=== PATIENT | male | born 1955 | race Caucasian/White ===

== ENCOUNTER → 2016-05-29 21:12 | Outpatient (CLI) | payer MEDICARE ==
[2014-05-23 13:05] VITALS: BMI 42.3
[~2016-05-29 21:12] MED LIST: ACTOS15 MG PO; ALTACE2.5 MG PO; ASPIRIN325 MG PO; BUPROBAN150 MG PO; DILAUDID4 MG PO; SYNTHROID75 MCG PO; TORADOL10 MG PO; VIBRAMYCIN 100100 MG PO; XANAX1 MG PO
== END | disposition home or self-care (01) ==
LOC: D.LABREF 21:12
DX: R53.81 Other malaise (principal)

== ENCOUNTER → 2017-10-09 13:35 | Outpatient (CLI) | payer MEDICARE ==
[2014-05-23 13:05] VITALS: BMI 42.3
== END | disposition home or self-care (01) ==
LOC: D.CT 13:35
DX: M54.5 Low back pain (principal)

== ENCOUNTER 2019-03-02 00:28 | Emergency (ER) | payer MEDICARE, BC ==
[~2019-03-02] VITALS: Ht 172.7 cm; Wt 120.5 kg
[2019-03-02 00:33] VITALS: Ht 172.7 cm; Wt 120.5 kg
[2019-03-02] MEDS ORDERED: GLUCOTROL XL 1010 MG PO (00:39)
[2019-03-02] MEDS ORDERED: BAYER CHEWABLE81 MG PO (00:40)
[2019-03-02] MEDS ORDERED: VICTOZA0.6 MG/0.1 SQ (00:41)
[2019-03-02] MEDS ORDERED: TOUJEO SOL300 UNIT/1 SC (00:42)
[2019-03-02] MEDS ORDERED: PERCOCET 10-321 EAC1 PO (00:46)
[2019-03-02 01:19] LABS: BASOPHILS 0.1 % (0-2); EOSINOPHILS 0.1 % (0-7); HEMATOCRIT 46.4 % (42.0-54.0); HEMOGLOBIN 15.9 g/dL (13.5-17.5); IMMATURE GRANULOCYTES 0.8 % (0-5); LYMPHOCYTES 8.4 % (15-50); MCH 29.5 pg (26.0-34.0); MCHC 34.3 g/dL (31.0-37.0); MCV 86.1 fL (80.0-100.0); MEAN PLATELET VOLUME 10.1 fL (7.4-10.4); MONOCYTES 1.5 % (2-11); NEUTROPHILS 89.1 % (40-80); PLATELET COUNT 195 10x3/uL (130-400); RBC 5.39 10x6/uL (4.20-6.10); RDW 12.9 % (11.5-14.5); WBC 10.6 10x3/uL (4.8-10.8)
[2019-03-02 01:35] LABS: ALBUMIN 3.5 g/dL (3.4-5.0); ALKALINE PHOSPHATASE 89 U/L (46-116); ALT (SGPT) 45 U/L (10-68); BILIRUBIN - TOTAL 0.46 mg/dL (0.2-1.3); CALC OSMOLALITY 292 mosm/kg (275-300); CALCIUM 9.3 mg/dL (8.5-10.1); CARBON DIOXIDE 25.2 mmol/L (21.0-32.0); CHLORIDE - SERUM 103 mmol/L (98-107); CREATININE - SERUM 1.2 mg/dL (0.6-1.3); POTASSIUM - SERUM 4.8 mmol/L (3.5-5.1); PROTEIN - SERUM 7.7 g/dL (6.4-8.2); SODIUM 135 mmol/L (136-145); UREA NITROGEN 24 mg/dL (7-18); eGFR NON AFRICAN AMERICAN 64 mL/min (90-120)
[2019-03-02 01:37] LABS: GLUCOSE 443 mg/dL (74-106)
[2019-03-02 01:40] LABS: KETONE - SERUM NEGATIVE (NEGATIVE)
[2019-03-02 01:43] LABS: APPEARANCE CLEAR (CLEAR); COLOR YELLOW (YELLOW)
[2019-03-02 01:44] LABS: BILIRUBIN NEGATIVE (NEGATIVE); GLUCOSE 1000 mg/dL (NEGATIVE); KETONE SMALL mg/dL (NEGATIVE); NITRITE NEGATIVE (NEGATIVE); PROTEIN NEGATIVE (NEGATIVE); UROBILINOGEN NORMAL (NORMAL)
[2019-03-02 02:53] VITALS: BP 108/61
== END 2019-03-02 02:53 | disposition home or self-care (01) ==
LOC: D.ER 00:28
PROVIDERS: Emergency Medicine
DX: E11.65 Type 2 diabetes mellitus with hyperglycemia (principal); E03.9 Hypothyroidism, unspecified; I10 Essential (primary) hypertension; K21.9 Gastro-esophageal reflux disease without esophagitis; F17.210 Nicotine dependence, cigarettes, uncomplicated

== ENCOUNTER 2019-11-07 02:31 | Observation (INO) | payer MEDICARE, BC ==
[~2019-11-07] VITALS: Ht 152.4 cm; Wt 117.9 kg
--- NOTE | ~2019-11-07 | HEMODYNAMI ---
PATIENT:KATELYN EMERSON MEDICAL RECORD: [id number] : 51 LOCATION:[place] [address] ADMISSION DATE: 11/07/19 Generatedon:11/07/201911:42 Patient name: KATELYN EMERSON Patient #: [id number] SSN: [id number] : 1955 Date of study: 11/07/2019 Page: Of Hemodynamic Procedure Report Patient Data Patient Demographics Procedure consent was obtained First Name: KATELYN Gender: Male Last Name: IDANIA : 1955 Patient #: [id number] Age: 64 year(s) Race: Unknown SSN: [id number] Additional ID: [id number] Contact details Address: [address] [place] [address] State: [place] City: [facility] [place] Zip code: [address] Past Medical History Allergies Allergen Reaction Date Comments Reported Other allergy 11/07/2019 CLAVULANIC ACID/AMOXICILLIN FROM AUGMENTIN Admission Admission Data Admission Date: 11/07/2019 Admission Time: 3:03 Arrival Date: 11/07/2019 Arrival Time: 0:00 Admit Source: Other Insurance Payor: Medicare Room #: D.2121 [facility] #: [id number] Height (in.): 62 BSA: 2.14 (m2) Height (cm.): 157.48 BMI: 47.55 (kg/m2) Weight (lbs.): 260 Weight (kg.): 117.93 Lab Results Lab Result Date: 11/07/2019 Lab Result Time: 0:00 Biochemistry Name Units Result Min Max BUN mg/dl 22 --(----)-* 7 18 Creatinine mg/dl 1 --(--*-)-- 0.6 1.3 eGFR ml/min 79.31651 *-(----)-- 90 120 NONAFRICAN CBC Name Units Result Min Max Hemoglobin g/dl 14.8 --(-*--)-- 13.5 17.5 Procedure Procedure Types Cath Procedure Diagnostic Procedure [facility] w/Coronaries Sedation Charges Moderate Sedation up to 30 minutes PCI Procedure Coronary Stent Coronary Stent Initial Hemochron ACT Test Procedure Description Procedure Date Procedure Date: 11/07/2019 Procedure Start Time: 11:20 Procedure End Time: 11:40 Procedure Staff Name Function Edinson Tee MD Performing Physician Sydnee Sim RT Monitor Carol Hoffman RN Nurse Ana Day RT Scrub Didiagnes Vasques RT Scrub Procedure Data Cath Procedure Fluoroscopy Diagnostic fluoroscopy Total fluoroscopy Time: 3.4 time: 3.4 min min Diagnostic fluoroscopy Total fluoroscopy dose: dose: 1008 mGy 1008 mGy Contrast Material Contrast Material Type Amount (ml) Isovue 300 89 Entry Location Entry Primary Successful Side Size Upsize Upsize Entry Closure Succes sful Closure Location (Fr) 1 (Fr) 2 (Fr) Remarks Device Remarks Femoral Right 5 Fr 6 Fr Exoseal artery Short Estimated blood loss: 10 ml Diagnostic catheters Device Type Used For End Catheter Placement MULTIPACK JL 4.0 5Fr Left Coronary catheter Angiography MULTIPACK 3DRC 5Fr Right Coronary catheter Angiography MULTIPACK Pigtail 5 Fr LV Angiography catheter Procedure Complications No complications Procedure Medications Medication Administration Route Dosage 0.9% NaCl I.V. 100 ml/hr Oxygen etCO2 Nasal cannula 2 l/min Lidocaine 2% added to field 20 Heparin Flush Bag added to field 2 bags (1000units/500ml NS) Versed I.V. 2 mg Fentanyl I.V. 50 mcg Fentanyl I.V. 50 mcg Heparin Bolus I.V. 5000 units Integrilin (Bolus I.V. 10.7 ml 2mg/ml) Plavix P.O. 600 mg Hemodynamics Rest BSA: 2.14 (m2) HGB: 14.8 (g/dl) O2 Consumption: Estimated: 241.36 (ml/min) O2 Co nsumption indexed: Estimated:112.79 (ml/min/m) Heart Rate: 60 (bpm) Pressure Samples Time Site Value (mmHg) Purpose Heart Use Rate(bpm) 11:26 LV 141/18,24 Snapshot 64 11:26 AO 115/48(84) Pullback 60 11:26 LV 112/10,25 Pullback 60 Gradients Valve Time Site 1 Site 2 Mean SEP/DFP Peak To Heart Use (mmHg) (sec/min) Peak Rate (mmHg) (bpm) Aortic 11:26 LV AO 0 7 0 60 112/10,25 115/48(84) Calculations Valve P-P Mean Valve Index Valve Source Name Gradient Area Flow (cm2) Aortic 0 0 0 0 Snapshots Pre Cath Intra NCS Post Cath Vital Signs Time Heart Resp SPO2 etCO2 NIBP (mmHg) Rhythm Pain Sedation Rate (ipm) (%) (mmHg) Status Level (bpm) 11:13:54 64 14 98 43 146/64(97) NSR 0 (11) 10(A) , No pain 11:18:14 60 16 97 26.1 123/66(91) NSR 0 (11) 10(A) , No pain 11:22:33 58 12 97 42.6 132/63(88) NSR 0 (11) 10(A) , No pain 11:26:53 60 11 98 44.8 119/67(97) NSR 0 (11) 10(A) , No pain 11:31:09 61 13 97 45.5 136/68(106) NSR 0 (11) 10(A) , No pain 11:35:29 67 14 97 41.1 133/60(99) NSR 0 (11) 10(A) , No pain 11:39:51 68 12 98 38.1 134/62(95) NSR 0 (11) 10(A) , No pain Medications Time Medication Route Dose Verified Delivered Reason Notes Effectiveness by by 11:16:31 0.9% NaCl I.V. 100 Edinson Carol used for ml/hr NayJusto Hoffman procedure MD MANN 11:16:37 Oxygen etCO2 2 Edinson Carol used for Nasal l/min NayJusto Hoffman procedure cannula RN 11:16:42 Lidocaine 2% added 20ml Edinson Neves for local to vial [facility] anesthetic field MD REAVES 11:16:47 Heparin Flush added 2 Edinson Neves [facility] ([facility]/500[facility] field MD REAVES NS) 11:17:35 Versed I.V. 2 mg Edinson Carol for sedation St Justo Hoffman MD, RN 11:17:44 Fentanyl I.V. 50 Edinson Carol for sedation mcg St Justo Hoffman MD, RN 11:22:16 Fentanyl I.V. 50 Edinson Carol for sedation mcg St Jutso Hoffman MD RN 11:28:07 Heparin Bolus I.V. 5000 Edinson Medina for verif ied units St Justo Hoffman anticoagulation with Dr. MD MACKENZIE Raza 11:32:21 Integrilin I.V. 10.7 Edinson Medina for (Bolus 2mg/ml) ml St Justo Hoffman antiplatelet RN therapy 11:32:34 Plavix P.O. 600 Edinson Medina for mg St Justo Hoffman antiplatelet RN therapy Procedure Log Time Note 11:00:56 Carol Hoffman RN sent for patient. Start room use. 11:01:58 Arrival Date: 11/07/2019 12:00:00 AM 11:02:17 Admit Source: Other 11:02:32 Insurance Payor : Medicare 11:02:48 Patient Height : 62 inches 11:02:52 Patient Weight : 260 lbs 11:03:27 Lab Result : eGFR NONAFRICAN 79.07579 ml/min 11:03:27 Lab Result : Hemoglobin 14.8 g/dl 11:03:27 Lab Result : BUN 22 mg/dl 11:03:27 Lab Result : Creatinine 1 mg/dl 11:03:35 Diagnostic Cath Status : Urgent 11:05:50 Procedure Status Urgent Heart Cath (IP). 11:06:02 Time tracking: Call back (After hours or weekends) 11:06:12 Plan of Care:Hemodynamics will remain stable., Cardiac rhythm will remain stable., Comfort level will be maintained., Respiratory function will remain adequate., Patient/ family verbilizes understanding of procedure., Procedure tolerated without complication., Recovers from procedure without complications.. 11:06:32 Patient received from Med II to CCL 1 Alert and oriented. Tansferred to table in Supine position. 11:06:36 Signed procedure consent form obtained from patient. 11:06:38 Warm blankets applied, and sommer hugger turned on for patient comfort. 11:06:39 Correct patient and procedure confirmed by team. 11:06:39 ECG and BP/O2 sat monitors applied to patient. 11:12:42 Vital chart was started 11:12:43 Baseline sample Acquired. 11:12:48 Rhythm: sinus rhythm 11:12:50 Full Disclosure recording started 11:12:50 - 11:13:35 H&P Date Dictated: 11/07/2019 Greater than 30 days; new H&P dictated by physician. Or brief H&P completed., ER History on chart.. 11:13:37 Pre-procedure instructions explained to patient. 11:13:38 Pre-op teaching completed and patient verbalized understanding. 11:13:41 Family in patients room. 11:13:44 Patient NPO since Midnight. 11:14:54 Patient allergic to Other allergyCLAVULANIC ACID/AMOXICILLIN FROM AUGMENTIN 11:14:58 Is the patient allergic to Iodine/contrast media? No. 11:15:01 Was the patient premedicated? Yes 11:15:05 Is patient on blood thinner?No 11:15:09 Patient diabetic? Yes. 11:15:11 ----Pre-sedation anethsthesia assessment.---- 11:15:16 Previous problem with sedation/anesthesia? No ? 11:15:19 Snore? Yes 11:15:23 Sleep apnea? Yes 11:15:26 Opens mouth fully? Yes 11:15:29 Sticks out tongue? Yes 11:15:33 Airway obstruction? No ? 11:15:36 Dentures? No ? 11:15:43 Pre procedure: right dorsailis pedis pulse 1+ Palpable, but thready & weak; easily obliterated 11:15:57 IV patent on arrival in left forearm with 0.9% NaCl at [facility]. 11:16:07 Lab results completed and on chart. 11:16:12 Stress Test: no; N/A ? 11:16:18 Right groin area was prepped with chlora-prep and draped in sterile fashion 11:16:21 Alarms reviewed by R. N. 11:16:22 Sharps counted by scrub and verified by R.N. 11:16:27 Use device set Femoral Dx 11:16:29 ACIST Syringe (82151) opened to sterile field. 11:16:30 Bag Decanter (2002) opened to sterile field. 11:16:30 Medline Cath Pack ([id number]) opened to sterile field. 11:16:31 0.9% NaCl 100 ml/hr I.V. was administered by Carol Hoffman RN; used for procedure; Verbal order read back and verified. 11:16:32 ACIST Hand Control (90409) opened to sterile field. 11:16:33 ACIST Manifold (34241) opened to sterile field. 11:16:33 DIAGNOSTIC Multipack 5Fr catheter set ([id number]) opened to sterile field. 11:16:34 Tegaderm 4 x 4 (1626W) opened to sterile field. 11:16:36 SHEATH 5FR [place] (DTP814) opened to sterile field. 11:16:37 Oxygen 2 l/min etCO2 Nasal cannula was administered by Carol Hoffman RN ; used for procedure; Verbal order read back and verified. 11:16:37 EMERALD Guide Wire (650-499) opened to sterile field. 11:16:42 Lidocaine 2% 20ml vial added to field was administered by Edinson Tee MD; for local anesthetic; Verbal order read back and verified. 11:16:47 Heparin Flush Bag (1000units/500ml NS) 2 bags added to field was administered by Edinson Tee MD; used for procedure; Verbal order read back and verified. 11:16:49 Physician arrived 11:16:50 --------ALL STOP TIME OUT------ 11:16:51 Final Timeout: patient, procedure, and site verified with staff and physician. All members of the team are in agreement. 11:16:53 Right groin site verified by team. 11:16:59 Fire Safety Assessment: A--An alcohol-based skin anteseptic being used preoperatively., C--Open oxygen or nitrous oxide is being used., D--An ESU, laser, or fiber-optic light is being used. 11:17:04 Physical assessment completed. ASA score P 2 - A patient with mild systemic disease as per Edinson Tee MD. 11:17:11 2) 60-89 Mildly reduced kidney function, and other findings (as for stage 1) point to kidney disease. 11:17:20 Maximum allowable contrast dose (3.7 X eGFR X 0.75)219 ml. 11:17:27 Sedation plan: IV Moderate Sedation Medication:Versed, Fentanyl 11:17:35 Versed 2 mg I.V. was administered by Carol Hoffman RN; for sedation; Verbal order read back and verified. 11:17:44 Fentanyl 50 mcg I.V. was administered by Carol Hoffman RN; for sedation ; Verbal order read back and verified. 11:20:38 Procedure started. 11:20:46 Local anesthetic to right femoral artery with Lidocaine 2% by Edinson Kemp MD.INITIAL ACCESS ONLY 11:20:51 Zero performed for pressure channel P1 11::57 Zero performed for pressure channel P1 11:22:16 Fentanyl 50 mcg I.V. was administered by Carol Hoffman RN; for sedation ; Verbal order read back and verified. 11:22:21 A 5 Fr sheath was inserted into the Right Femoral artery 11:22:31 A MULTIPACK JL 4.0 5Fr catheter was advanced over the wire and used for Left Coronary Angiography. 11:23:17 LCA angiography performed. 11:23:22 Injector settings: Ml/sec: 3, Volume: 6, 11:24:09 Catheter removed. 11:24:16 A MULTIPACK 3DRC 5Fr catheter was advanced over the wire and used for Right Coronary Angiography. 11:24:35 RCA angiography performed. 11:25:02 Injector settings: Ml/sec: 3, Volume: 6, 11:25:11 Catheter removed. 11:25:19 A MULTIPACK Pigtail 5 Fr catheter was advanced over the wire and used for LV Angiography. 11:25:26 LV gram done using DICKSON 11::33 Injector settings: Ml/sec: 5, Volume: 15, 11:26:36 EF : 50 % 11:26:48 LV hemodynamics recorded. 11:26:50 Catheter removed. 11:26:51 Proceeding to intervention. 11:26:55 SHEATH 6FR [place] (FGJ069) opened to sterile field. 11:26:56 INFLATOR Merit BasixCompak (FW1424) opened to sterile field. 11:26:57 WHISPER 300cm guide wire ([id number]) opened to sterile field. 11:27:09 Sheath upsized to a 6 Fr Short. 11:27:24 GUIDE 6FR XBLAD 3.5 catheter ([id number]) opened to sterile field. 11:27:33 ACC Pre-intervention SOHEILA Flow is 3. 11:27:50 Pre PCI Site: [place] mLAD has 90% stenosis. 11:27:59 6 Fr XBLAD3.5 guide catheter was inserted over the wire 11:28:07 Heparin Bolus 5000 units I.V. was administered by Carol Hoffman RN; for anticoagulation; verified with Dr. Raza Verbal order read back and verified. 11:28:08 APNOIUC580 wire advanced. 11:32:03 Inflate balloon Inflation number: 1 A EMERGE OTW 2.5 x 15 balloon ([id number]) was prepped and advanced across the Mid LAD , then inflated to 10 CLAUDE for 0:23 (min:sec) . 11:32:21 Integrilin (Bolus 2mg/ml) 10.7 ml I.V. was administered by Carol delgadillo RN; for antiplatelet therapy; Verbal order read back and verified. 11:32:34 Plavix 600 mg P.O. was administered by Carol Hoffman RN; for antiplatelet therapy; Verbal order read back and verified. 11:32:44 Balloon removed over the wire. 11:35:38 Place stent Inflation Number: 2 A JALEN RX 3.0 x 15 stent ([id number]) was prepped and advanced across the Mid LAD . The stent was deployed at 14 CLAUDE for 0:23 (min:sec) . 11:36:07 EXOSEAL 6Fr (EX600) opened to sterile field. 11:36:16 Stent catheter was removed intact over wire. 11:36:17 Wire removed. 11:36:18 Guide catheter removed. 11:36:26 Post PCI Site: [place] mLAD has 0% stenosis. 11:36:30 ACC Post-intervention SOHEILA Flow is 3. 11:37:24 Sheath removed intact; hemostasis achieved with Exoseal to the Right Femoral artery. 11:37:27 Procedure ended.(Physican Out) 11:37:51 Risk of Mortality: 1.3 11:37:56 Risk of blood transfusion: 0.7 11:38:01 Risk of NGOC: 3.8 11:38:15 Fluoroscopy time 03.40 minutes. 11:38:20 Fluoroscopy dose: 1008 mGy 11:38:20 Flurop Dose total: 1008 11:38:28 Dose Area Product 24978 mGy/cm. 11:38:36 Contrast amount:Isovue 300 89ml. 11:38:40 Maximum allowable dose exceeded? No. 11:38:41 Sharps counted by scrub and verified by R.N. 11:38:47 Post-op/insertion site Right Femoral artery dressed using a 4 x 4 and Tegaderm. 11:38:52 Post-procedure physical assessment completed. ASA score P 2 - A patient with mild systemic disease as per Edinson Tee MD. 11:38:55 Post procedure rhythm: unchanged. 11:38:58 Estimated blood loss: 10 ml 11:39:00 Post procedure instruction explained to patient.Patient verbalizes understanding. 11:39:01 Patient needs reinforcement of post procedure teaching. 11:39:29 Procedure type changed to Cath procedure, Diagnostic procedure, LHC, C w/Coronaries, Sedation Charges, Moderate Sedation up to 30 minutes, PCI procedure, Coronary Stent, Coronary Stent Initial, Hemochron ACT Test 11:39:31 Procedure and supply charges have been captured, reviewed, submitted an d are correct. 11:39:53 ACT drawn and resulted at 207 seconds. (normal therapeutic range 180-24 0 seconds). 11:40:00 Procedure Complication : No complications 11:40:04 Vital chart was stopped 11:40:11 [facility] Findings: MVD- PCI performed (see procedure note) 11:40:13 Operative report dictated upon procedure completion. 11:40:14 See physician's report for complete and final results. 11:40:18 Report given to [facility]. 11:40:23 Patient transfered to [facility] with Bed. 11:40:26 Procedure ended. 11:40:26 Full Disclosure recording stopped 11:40:34 ACC-PCI Only Patient was given prescriptions, or instructed by Edinson Tee MD to start/continue the following medications upon discharge: Plavix 11:40:36 End room use (Document Last) Intervention Summary Intervention Notes Time ActionType Lesion and Equipment Used Action# Pressure Duration Attributes 11:32:03 Inflate Mid LAD EMERGE OTW 2.5 1 10 00:23 balloon x 15 balloon ([id number]) 11:35:38 Place stent Mid LAD JALEN RX 3.0 x 2 14 00:23 15 stent ([id number]) Device Usage Item Name Manufacture Quantity Catalog Number Hospital Part Current Minimal Lot# / Charge Number Stock Stock Serial# Code ACIST Syringe Acist 1 45813 442131 074093 847242 20 (17379) Medical Systems Inc Bag Decanter Microtek 1 527857 19603 958813 5 (2001S) Medical Inc. Medline Cath Medline 1 [id number] 678929 52022 681739 5 Pack ([id number]) ACIST Hand Acist 1 13752 874463 883799 651913 5 Control Medical (40571) Systems Inc ACIST Manifold Acist 1 47323 274675 655474 046963 5 (60947) Medical Systems Inc DIAGNOSTIC Cardinal 1 WH8149 250657 34588 789427 30 Multipack 5Fr Health catheter set (ZB6017) Tegaderm 4 x 4 3M 1 1626W 966356 980589 034675 5 (1626W) SHEATH 5FR Terumo 1 MBI060 831328 071629 288177 5 [place] (JEG616) EMERALD Guide Cardinal 1 502-455 874420 954804 695046 5 Wire (502-455) Health MULTIPACK JL Cardinal 1 305324 5 4.0 5Fr Health catheter MULTIPACK 3DRC Cardinal 1 342028 5 5Fr catheter Health MULTIPACK Cardinal 1 038001 5 Pigtail 5 Fr Health catheter SHEATH 6FR Terumo 1 YUK076 909887 193609 371457 40 [place] (AYE724) INFLATOR Merit Merit 1 LW8196 925585 052917 785797 15 [facility] Medical (OC5427) WHISPER 300cm Toribio 1 [id number] 840682 875237 395159 5 guide wire Vascular (1484689QV) GUIDE 6FR Cardinal 1 [id number] 529102 444272 300593 10 XBLAD 3.5 Health catheter (38370777) EMERGE OTW 2.5 [place] 1 [id number] 096794 561050 666541 5 [id number] x 15 balloon Scientific ([id number]) JALEN RX 3.0 x Medtronic 1 [id number] 408979 4587291 162064 5 [id number] 15 stent ([id number]) EXOSEAL 6Fr Cardinal 1 EX600 504146 942930 243134 10 (EX600) Health Signature Audit [place] Stage Time Signature Unsigned Intra-Procedure 11/07/2019 Sydnee 11:41:13 AM Roney RT(R) (CV) Intra-Procedure 11/07/2019 Carol Hoffman 11:41:44 AM RN Intra-Procedure 11/07/2019 Edinson Rm 11:42:22 AM Justo REAVES [facility] [address] [place] [address]
[~2019-11-07 02:31] MED LIST changes: +BAYER CHEWABLE81 MG PO; +GLUCOTROL XL 1010 MG PO; +PERCOCET 10-321 EAC1 PO; +TOUJEO SOL300 UNIT/1 SC; +VICTOZA0.6 MG/0.1 SQ
[2019-11-07 03:05] LABS: BASOPHILS 0.2 % (0-2); EOSINOPHILS 2.1 % (0-7); HEMATOCRIT 45.2 % (42.0-54.0); HEMOGLOBIN 14.8 g/dL (13.5-17.5); IMMATURE GRANULOCYTES 0.3 % (0-5); LYMPHOCYTES 28.1 % (15-50); MCH 28.8 pg (26.0-34.0); MCHC 32.7 g/dL (31.0-37.0); MCV 88.1 fL (80.0-100.0); MEAN PLATELET VOLUME 10.1 fL (7.4-10.4); MONOCYTES 7.9 % (2-11); NEUTROPHILS 61.4 % (40-80); PLATELET COUNT 198 10x3/uL (130-400); RBC 5.13 10x6/uL (4.20-6.10); RDW 13.5 % (11.5-14.5); WBC 8.8 10x3/uL (4.8-10.8)
--- NOTE | 2019-11-07 03:05 | NUR ---
PT STATES THAT PAIN IS RELIEVED WITH 1 NITRO PT C/O BELLE STATES THAT HE HAS CHRONIC MIGRAINES. INFORMED.
[2019-11-07 03:08] LABS: APTT 33.6 SECONDS (22.8-39.4); INR 1.06 (0.85-1.17); PROTIME 13.7 SECONDS (11.6-15.0)
[2019-11-07 03:12] LABS: CALC OSMOLALITY 283 mosm/kg (275-300); CALCIUM 8.6 mg/dL (8.5-10.1); CARBON DIOXIDE 27.2 mmol/L (21.0-32.0); CHLORIDE - SERUM 104 mmol/L (98-107); POTASSIUM - SERUM 4.1 mmol/L (3.5-5.1); SODIUM 137 mmol/L (136-145); UREA NITROGEN 22 mg/dL (7-18); eGFR NON AFRICAN AMERICAN 79 mL/min (90-120)
[2019-11-07 03:13] LABS: GLUCOSE 227 mg/dL (74-106)
[2019-11-07 03:33] LABS: ALBUMIN 3.7 g/dL (3.4-5.0); ALKALINE PHOSPHATASE 90 U/L (30-120); ALT (SGPT) 37 U/L (10-68); BILIRUBIN - TOTAL 0.54 mg/dL (0.2-1.3); PROTEIN - SERUM 7.4 g/dL (6.4-8.2)
[2019-11-07 03:34] LABS: TROPONIN-I 0.267 ng/mL (0.000-0.060)
[2019-11-07 03:45] VITALS: BP 104/73
--- NOTE | 2019-11-07 04:20 | NUR ---
PT C/O CHEST PAIN AGAIN AT THIS TIME. PT REFUSED WANTING TO TAKE NITRO AGAIN DUE TO BELLE. INFORMED. SEE EMAR.
[2019-11-07] MEDS ORDERED: HUMALOG 30100 UNITS/ SC (05:16)
[2019-11-07] MEDS ORDERED: LIPITOR20 MG PO (05:21)
[2019-11-07 05:22] VITALS: BP 112/74
--- NOTE | 2019-11-07 05:22 | NUR ---
PT FROM ER VIA STRETCHER, PT AMBULATED TO BED, NO DISTRESS NOTED, RESP EVEN AND UNLABORED. AT BEDSIDE.
[2019-11-07 05:28] VITALS: Ht 152.4 cm; Wt 117.9 kg
--- NOTE | 2019-11-07 06:16 | NUR ---
SHEET METAL FORMER ASSESSMENT COMPLETED BY RN AND PT IS RESTING IN BED WITH AT BEDSIDE.
[2019-11-07 09:01] VITALS: BP 119/41
[2019-11-07 10:22] LABS: BASOPHILS 0.1 % (0-2); HEMATOCRIT 44.6 % (42.0-54.0); HEMOGLOBIN 14.5 g/dL (13.5-17.5); IMMATURE GRANULOCYTES 0.3 % (0-5); LYMPHOCYTES 31.5 % (15-50); MCH 28.5 pg (26.0-34.0); MCHC 32.5 g/dL (31.0-37.0); MCV 87.6 fL (80.0-100.0); MEAN PLATELET VOLUME 10.2 fL (7.4-10.4); MONOCYTES 8.8 % (2-11); NEUTROPHILS 57.3 % (40-80); PLATELET COUNT 169 10x3/uL (130-400); RBC 5.09 10x6/uL (4.20-6.10); RDW 13.4 % (11.5-14.5)
[2019-11-07 10:38] LABS: ALT (SGPT) 38 U/L (10-68); CALC OSMOLALITY 281 mosm/kg (275-300); CALCIUM 8.1 mg/dL (8.5-10.1); CARBON DIOXIDE 27.5 mmol/L (21.0-32.0); CHLORIDE - SERUM 103 mmol/L (98-107); CHOL - HDL RATIO 3.7 ratio (2.3-4.9); CHOLESTEROL, TOTAL 104 mg/dL (0-200); CREATININE - SERUM 0.9 mg/dL (0.6-1.3); GLUCOSE 206 mg/dL (74-106); HDL CHOLESTEROL 28 mg/dL (32-96); LDL CHOLESTEROL 50 mg/dL (0-100); LDL-HDL RATIO 1.8 ratio (1.5-3.5); POTASSIUM - SERUM 4.1 mmol/L (3.5-5.1); SODIUM 137 mmol/L (136-145); TRIGLYCERIDE 133 mg/dL (30-200); UREA NITROGEN 18 mg/dL (7-18); eGFR NON AFRICAN AMERICAN 90 mL/min (90-120)
--- NOTE | 2019-11-07 11:10 | NUR ---
PRE-OPS GIVEN. TO AVIAN KEEPER BY BED.
[2019-11-07] MEDS ORDERED: PLAVIX75 MG PO (13:30)
--- NOTE | 2019-11-07 15:49 | NUR ---
BED REST UP. GROIN STABLE.
--- NOTE | 2019-11-07 16:09 | NUR ---
IV AND TELEMETRY DCD. DC PLANS GIVEN. UNDERSTANDING VOICED. ESCORTED TO CAR BY W/C.
--- NOTE | 2019-11-08 11:22 | CN ---
PATIENT NAME:KATELYN EMERSON MEDICAL RECORD: [id number] : 51 LOCATION:. D.2121 ADMIT DATE: 11/07/19 ACCOUNT: [id number] CONSULTING PHYSICIAN: KODY LUNSFORD MD REFERRING PHYSICIAN: ROSY ROBERT MD DATE OF CONSULTATION: 11/07/2019 HISTORY OF PRESENT ILLNESS: A 64-year-old gentleman with a history of diabetes mellitus, hypertension, hyperlipidemia been having intermittent chest pain, rapidly progressively symptomatology, was actually scheduled for nuclear stress testing in [place] in the near future. However, had rest symptomology yesterday, sent into Emergency Room, found to have NSTEMI with elevated cardiac enzymes. Additionally EKG changes with no significant ST-T changes inferolaterally. He is being evaluated for NSTEMI. PAST MEDICAL HISTORY: Includes: 1. History of hypertension. 2. Hyperlipidemia. 3. Diabetes mellitus. ALLERGIES: AUGMENTIN. SOCIAL HISTORY: Nonsmoker, nondrinker. Stays active. Easily takes care of all his ADLs. No set exercise program. REVIEW OF SYSTEMS: The patient reports easy bruising but reports no swollen glands. The patient reports no fever, no night sweats, no significant weight gain, no significant weight loss. No significant exercise tolerance. The patient reports no dry eyes, no irritation, no vision change. Patient reports no difficulty hearing and no ear pain. Patient reports no frequent nose bleeds or nose and sinus problems. Patient reports on arm pain on exertion. No shortness of breath while lying down. No history of heart murmur. Patient reports no cough, no wheezing or coughing up blood. Patient reports no abdominal pain, no vomiting. Normal appetite. No diarrhea and not vomiting blood. No nausea and no constipation. Patient reports no incontinence. No difficulty urinating. No hematuria. No increased frequency. Patient reports no muscle aches. No weakness, no arthralgias, no back pain. No swelling of the extremities. Patient reports no abnormal mole, no jaundice, no rashes. Reports no loss of consciousness. No weakness and no numbness. No seizures, dizziness, or headaches. The patient reports no depression, no sleep disturbance, feeling safe in a relationship and no alcohol abuse. Patient reports on fatigue. Reports no runny nose or sinus pressure. No itching, no hives, and no frequent sneezing. MEDICATIONS: Include Altace 2.5 daily, Lipitor 20 daily, Xanax 1 p.o. at bedtime p.r.n., aspirin 81 daily, Dilaudid 4 mg q.6 hours p.r.n., Synthroid 75 mcg daily, Glucotrol 15 daily, Victoza 14 subq daily. PHYSICAL EXAMINATION: GENERAL: Pleasant gentleman in no acute distress, appears stated age. VITAL SIGNS: Blood pressure 112/74, pulse 84 and regular. HEENT: Normocephalic, atraumatic. NECK: No JVD or bruit. HEART: Regular. LUNGS: Good air excursion. CONSULT REPORT [id number] KATELYN EMERSON ABDOMEN: Soft, nontender. EXTREMITIES: Pulses actually well preserved. There is 1+ edema. IMPRESSION: Ybz-VU-jjabktldq myocardial infarction, multiple risk factors. PLAN: For angiography, intervention based on above. TRANSINT:[id number] Voice Confirmation ID: [id number] DOCUMENT ID: [id number] KODY LUNSFORD MD at 1122 CC: [id number] DICTATION DATE: 11/07/19 0858 SILVERWARE WASHER: 11/07/19 0951 DIS IN 11/07/19 [facility] [address] [place] [address]
--- NOTE | 2019-11-08 11:22 | OP ---
PATIENT NAME: KATELYN EMERSON MEDICAL RECORD: [id number] :51 LOCATION:D.M2 D.1 ADMISSION DATE:11/07/19 SURGEON: KODY LUNSFORD MD DATE OF OPERATION: 11/07/2019 PROCEDURE: Left heart catheterization, selective coronary angiography, right femoral artery approach. CATHETERS: A 5-Armenian sheath, 5/4 left and right Nathan, 5/4 pig. The procedure was well tolerated. The patient returned to kelly, sheath removed. We proceeded to do a PTCA stenting to the LAD. FINDINGS: Left ventriculography in 30-degree DICKSON view: Normal wall motion, normal systolic function. CORONARY ANATOMY: LEFT MAIN: Left main is free of disease. LAD: Has a basically subtotaled better than 90% stenosis in its mid portion. I see a culprit artery. CIRCUMFLEX: Medium sized circumflex. There is an OM 2.5-3 vessel and has about 80% long diffuse stenosis. RIGHT CORONARY ARTERY: Large, dominant, free of disease. IMPRESSION: Culprit artery obviously LAD. PLAN: Intervention momentarily, staged intervention of the circ at a later date. DESCRIPTION OF PROCEDURE: A 5-Armenian sheath was exchanged for a 6-Armenian sheath. XB LAD guiding catheter provided good guide catheter support followed by 300 cm Whisper wire was placed across subtotal LAD down to distal portion of this vessel. Pre-deployment balloon was a 2.5 x 15, stent deployed was a 3.0 x 18 drug-eluting stent up to 14 atmospheres for 45 seconds. Final angiography shows excellent resolution of a 90% plus stenosis, no significant residual. SOHEILA flow was 3 throughout the procedure. Heparin and Integrilin were used during the case. Plavix was loaded in the lab. Sheath closed with ExoSeal device. TRANSINT:[id number] Voice Confirmation ID: [id number] DOCUMENT ID: [id number] KODY LUNSFORD MD at 1122 CC: [id number] DICTATION DATE: 11/07/19 1148 TALENT ACQUISITION ADMINISTRATOR: 11/07/19 1741 DIS IN 11/07/19 [facility] [address] [place] [address]
== END 2019-11-07 16:10 | disposition home or self-care (01) ==
LOC: D.ER 02:31 → D.M2 03:03 → OBSVTIME 03:03 → D.M2 16:10
PROVIDERS: Family Medicine; Internal Medicine Interventional Cardiology; ADMIT Family Medicine; ATTEND Family Medicine
DX: I21.4 Non-ST elevation (NSTEMI) myocardial infarction (principal); I10 Essential (primary) hypertension; E11.65 Type 2 diabetes mellitus with hyperglycemia; K21.9 Gastro-esophageal reflux disease without esophagitis; M19.90 Unspecified osteoarthritis, unspecified site; E03.9 Hypothyroidism, unspecified; F41.8 Other specified anxiety disorders; G89.29 Other chronic pain; E78.5 Hyperlipidemia, unspecified
CPT/HCPCS: 93458; C9600

== ENCOUNTER 2019-11-23 11:01 | Outpatient (CLI) | payer MEDICARE, BC ==
[~2019-11-23] VITALS: Ht 172.7 cm; Wt 119.9 kg
--- NOTE | ~2019-11-23 | HEMODYNAMI ---
PATIENT:KATELYN EMERSON MEDICAL RECORD: [id number] : 51 LOCATION:[facility] ADMISSION DATE: 11/23/19 Generatedon:11/23/201913:03 Patient name: KATELYN EMERSON Patient #: [id number] SSN: [id number] : 1955 Date of study: 11/23/2019 Page: Of Hemodynamic Procedure Report Patient Data Patient Demographics Procedure consent was obtained First Name: KATELYN Gender: Male Last Name: IDANIA : 1955 Patient #: [id number] Age: 64 year(s) Race: SSN: [id number] Additional ID: [id number] Contact details Address: [address] [place] [address] State: [place] City: [facility] Zip code: [address] Past Medical History Allergies Allergen Reaction Date Comments Reported Other allergy 11/07/2019 CLAVULANIC ACID/AMOXICILLIN FROM AUGMENTIN Other allergy 11/23/2019 clavulanic acid, amoxicyllin Admission Admission Data Admission Date: 11/23/2019 Admission Time: 11:01 Arrival Date: 11/23/2019 Arrival Time: 12:00 Admit Source: Other Insurance Payor: Medicare [facility] #: [id number] Lab Results Lab Result Date: 11/23/2019 Lab Result Time: 0:00 Biochemistry Name Units Result Min Max BUN mg/dl 22 --(----)-* 7 18 Creatinine mg/dl 0.9 --(-*--)-- 0.6 1.3 eGFR ml/min 90 --(*---)-- 90 120 NONAFRICAN CBC Name Units Result Min Max Hematocrit % 45.2 --(-*--)-- 42 54 Hemoglobin g/dl 14.6 --(-*--)-- 13.5 17.5 Procedure Procedure Types Cath Procedure Diagnostic Procedure PCI Procedure Coronary Stent Coronary Stent Initial Procedure Description Procedure Date Procedure Date: 11/23/2019 Procedure Start Time: 12:48 Procedure End Time: 13:01 Procedure Staff Name Function Edinson Tee MD Performing Physician Kim Alvarez RT Monitor Jessica Chen RT Scrub Emeterio Sow RN Nurse Procedure Data Cath Procedure Fluoroscopy Diagnostic fluoroscopy Total fluoroscopy Time: 2 time: 2 min min Diagnostic fluoroscopy Total fluoroscopy dose: 550 dose: 550 mGy mGy Contrast Material Contrast Material Type Amount (ml) Isovue 370 50 Entry Location Entry Primary Successful Side Size Upsize Upsize Entry Closure Succes sful Closure Location (Fr) 1 (Fr) 2 (Fr) Remarks Device Remarks Femoral Right 6 Fr Exoseal artery Short Estimated blood loss: 10 ml Procedure Complications No complications Procedure Medications Medication Administration Route Dosage Oxygen etCO2 Nasal cannula 2 l/min Lidocaine 2% added to field 20 Heparin Flush Bag added to field 2 bags (1000units/500ml NS) 0.9% NaCl I.V. 100 ml/hr Versed I.V. 2 mg Fentanyl I.V. 50 mcg Heparin Bolus I.V. 5000 units Versed I.V. 1 mg Fentanyl I.V. 50 mcg Versed I.V. 1 mg Hemodynamics Rest HGB: 14.6 (g/dl) Heart Rate: 57 (bpm) Snapshots Pre Cath Intra NCS Post Cath Vital Signs Time Heart Resp SPO2 etCO2 NIBP (mmHg) Rhythm Pain Sedation Rate (ipm) (%) (mmHg) Status Level (bpm) 12:41:24 55 20 95 39 133/61(110) NSR 0 (11) 10(A) , No pain 12:45:58 55 19 94 35.2 139/64(88) NSR 0 (11) 10(A) , No pain 12:50:33 58 15 95 35.3 123/63(93) NSR 0 (11) 9(A) , No pain 12:55:05 59 12 96 21.7 140/63(117) NSR 0 (11) 9(A) , No pain 12:59:48 56 12 96 44.2 135/57(103) NSR 0 (11) 10(A) , No pain Medications Time Medication Route Dose Verified Delivered Reason Notes E ffectiveness by by 12:39:56 Oxygen etCO2 2 Edinson Storm used for Nasal l/min St Justo Sow hose builder cannula 12:40:03 Lidocaine 2% added 20ml Edinson Neves for local to vial [facility] anesthetic field MD REAVES 12:40:08 Heparin Flush added 2 Edinson Neves used for Bag to bags [facility] procedure (1000units/500ml field MD REAVES NS) 12:40:18 0.9% NaCl I.V. 100 Edinson Storm Per ml/hr Isatu Magi MANN physician 12:49:40 Versed I.V. 2 mg Edinson Fungie for [place] Magi MANN sedation 12:49:46 Fentanyl I.V. 50 Edinson Buffie for [facility] Magi MANN sedation 12:52:29 Heparin Bolus I.V. 5000 Edinson Neves for local verified units [facility] anesthetic with dr MD MD sanchez 12:52:33 Versed I.V. 1 mg Edinson Salazarory for [facility] sedation MD REAVES 12:52:37 Fentanyl I.V. 50 Edinson Salazarory for [facility] sedation MD REAVES 12:56:17 Versed I.V. 1 mg Edinson Salazarory for [facility] sedation MD REAVES Procedure Log Time Note 11:54:09 Diagnostic Cath Status : Elective 11:55:14 Informed consent obtained and on chart 11:55:27 Arrival Date: 11/23/2019 12:00:00 PM 11:55:54 Admit Source: Other 11:55:57 Insurance Payor : Medicare 11:56:55 Procedure Status Elective Heart Cath (OP). 11:57:20 Time tracking: Regular hours (M-F 7:00 - 5:00) 11:57:25 Plan of Care:Hemodynamics will remain stable., Cardiac rhythm will remain stable., Comfort level will be maintained., Respiratory function will remain adequate., Patient/ family verbilizes understanding of procedure., Procedure tolerated without complication., Recovers from procedure without complications.. 12:00:19 Jessica Chen RT(R) sent for patient. Start room use. 12:39:19 Warm blankets applied, and sommer hugger turned on for patient comfort. 12:39:26 Correct patient and procedure confirmed by team. 12:39:32 ECG and BP/O2 sat monitors applied to patient. 12:39:43 Vital chart was started 12:39:56 Oxygen 2 l/min etCO2 Nasal cannula was administered by Buffie Sow RN; used for procedure; Verbal order read back and verified. 12:39:58 Patient received from Pre/Post Procedure Room to CCL 1 Alert and oriented. Tansferred to table in Supine position. 12:40:03 Lidocaine 2% 20ml vial added to field was administered by Edinson Tee MD; for local anesthetic; Verbal order read back and verified. 12:40:08 Heparin Flush Bag (1000units/500ml NS) 2 bags added to field was administered by Edinson Tee MD; used for procedure; Verbal order read back and verified. 12:40:18 0.9% NaCl 100 ml/hr I.V. was administered by Emeterio Sow RN; Per physician; Verbal order read back and verified. 12:43:18 Pre-procedure instructions explained to patient. 12:43:18 Pre-op teaching completed and patient verbalized understanding. 12:43:20 Family in waiting room. 12:43:22 Patient NPO since Midnight. 12:43:24 Is the patient allergic to Iodine/contrast media? No. 12:43:25 Was the patient premedicated? No 12:43:27 Is patient on blood thinner?Yes 12:43:29 ACC The patient was administered the following blood thiners within the last 24 hours: ACCPlavix 12:43:31 Patient diabetic? Yes. 12:43:32 If diabetic: On Metformin? No 12:43:34 - 12:43:34 ----Pre-sedation anethsthesia assessment.---- 12:43:37 Previous problem with sedation/anesthesia? No ? 12:43:38 Snore? Yes 12:43:40 Sleep apnea? Unknown 12:43:42 Deviated septum? No 12:43:43 Opens mouth fully? Yes 12:43:44 Sticks out tongue? Yes 12:43:48 Airway obstruction? No ? 12:43:50 Dentures? No ? 12:44:39 Baseline sample Acquired. 12:44:40 Full Disclosure recording started 12:44:45 H&P Date Dictated: 11/23/2019 New H&P dictated by physician.. 12:45:38 Patient allergic to Other allergyclavulanic acid, amoxicyllin 12:45:46 Baseline sample Acquired. 12:45:52 Rhythm: sinus bradycardia 12:46:00 Pre procedure: right dorsailis pedis pulse 1+ Palpable, but thready & weak; easily obliterated 12:46:03 Patient pain scale 0/10 ?. 12:46:19 IV patent on arrival in right antecubital with 0.9% NaCl at [facility]. 12:47:16 Lab Result : BUN 22 mg/dl 12:47:16 Lab Result : Creatinine 0.9 mg/dl 12:47:16 Lab Result : eGFR NONAFRICAN 90 ml/min 12:47:16 Lab Result : Hemoglobin 14.6 g/dl 12:47:16 Lab Result : Hematocrit 45.2 % 12:47:22 Lab results completed and on chart. 12:47:25 Stress Test: no; N/A ? 12:47:26 Alarms reviewed by R. N. 12:47:27 Sharps counted by scrub and verified by R.N. 12:47:31 Right groin area was prepped with chlora-prep and draped in sterile fashion 12:47:36 Use device set ISATU PCI 12:47:38 GUIDE 6FR XBLAD 3.5 catheter ([id number]) opened to sterile field. 12:47:39 INFLATOR Merit BasixCompak ([id number]) opened to sterile field. 12:47:41 WHISPER 300cm guide wire ([id number]) opened to sterile field. 12:47:44 SHEATH 6FR Lavon (TLU418) opened to sterile field. 12:47:47 Use device set Femoral Dx 12:47:49 ACIST Syringe (88503) opened to sterile field. 12:47:50 Bag Decanter (2002S) opened to sterile field. 12:47:51 Medline Cath Pack ([id number]) opened to sterile field. 12:47:53 ACIST Hand Control (09492) opened to sterile field. 12:47:53 ACIST Manifold (37635) opened to sterile field. 12:47:57 EMERALD Guide Wire (502-455) opened to sterile field. 12:48:04 --------ALL STOP TIME OUT------ 12:48:04 Final Timeout: patient, procedure, and site verified with staff and physician. All members of the team are in agreement. 12:48:06 Right groin site verified by team. 12:48:14 Fire Safety Assessment: A--An alcohol-based skin anteseptic being used preoperatively., C--Open oxygen or nitrous oxide is being used., D--An ESU, laser, or fiber-optic light is being used. 12:48:17 Physical assessment completed. ASA score P 2 - A patient with mild systemic disease as per Edinson Tee MD. 12:48:22 1) 90+ Normal kidney functon but urine findings or structural abnormalities or genetic trait point to kidney disease. 12:48:25 Maximum allowable contrast dose (3.7 X eGFR X 0.75)250 ml. 12:48:29 Sedation plan: IV Moderate Sedation Medication:Versed, Fentanyl 12:48:33 Procedure started. 12:48:37 Local anesthetic to right femoral artery with Lidocaine 2% by Edinson Kemp MD.INITIAL ACCESS ONLY 12:49:40 Versed 2 mg I.V. was administered by Emeterio Sow RN; for sedation; Verbal order read back and verified. 12:49:46 Fentanyl 50 mcg I.V. was administered by Emeterio Sow RN; for sedation; Verbal order read back and verified. 12:50:38 A 6 Fr Short sheath was inserted into the Right Femoral artery 12:50:47 Proceeding to intervention. 12:51:02 6 Fr XBLAD 3.5 guide catheter was inserted over the wire 12:52:00 Pre PCI Site: [place] Circ has 80% stenosis. 12:52:29 Heparin Bolus 5000 units I.V. was administered by Edinson Tee MD; for local anesthetic; verified with dr sanchez Verbal order read back and verified. 12:52:30 WHISPER 300 wire advanced. 12:52:33 Versed 1 mg I.V. was administered by Edinson Tee MD; for sedation; Verbal order read back and verified. 12:52:37 Fentanyl 50 mcg I.V. was administered by Edinson Tee MD; for sedation; Verbal order read back and verified. 12:53:21 Wire advanced across lesion. 12:55:49 Place stent Inflation Number: 1 A JALEN RX 2.5 x 18 stent ([id number]) was prepped and advanced across the Mid CX 80. The stent was deployed at 14 CLAUDE for 0:00 (min:sec) . 12:56:17 Versed 1 mg I.V. was administered by Edinson Tee MD; for sedation; Verbal order read back and verified. 12:56:55 Inflation number: 2 The stent balloon was then re-inflated across the Mid CX to 14 CLAUDE for 0:00 (min:sec) . 12:57:15 Stent catheter was removed intact over wire. 12:57:16 Wire removed. 12:57:17 Guide catheter removed. 12:57:28 EXOSEAL 6Fr (EX600) opened to sterile field. 12:57:43 Sheath removed intact; hemostasis achieved with Exoseal to the Right Femoral artery. 12:58:09 Fluoroscopy time 02.00 minutes. 12:58:14 Flurop Dose total: 550 12:58:14 Fluoroscopy dose: 550 mGy 12:58:20 Dose Area Product 04242 mGy/cm. 12:58:21 Procedure ended.(Physican Out) 12:58:34 Contrast amount:Isovue 370 50ml. 12:58:36 Maximum allowable dose exceeded? No. 12:58:39 Sharps counted by scrub and verified by R.N. 12:58:45 Post-op/insertion site Right Femoral artery dressed using a 4 x 4 and Tegaderm. 12:58:50 Post right femoral artery:stable, soft, clean and dry 12:58:52 Post Procedure Pulses reassessed and unchanged 12:58:55 Post procedure: right dorsailis pedis pulse 1+ Palpable, but thready & weak; easily obliterated. 12:58:58 Post-procedure physical assessment completed. ASA score P 2 - A patient with mild systemic disease as per Edinson Tee MD. 12:59:04 Post procedure rhythm: unchanged. 12:59:08 Estimated blood loss: 10 ml 12:59:10 Post procedure instruction explained to patient.Patient verbalizes understanding. 12:59:10 Patient needs reinforcement of post procedure teaching. 12:59:36 Procedure type changed to Cath procedure, Diagnostic procedure, PCI procedure, Coronary Stent, Coronary Stent Initial 12:59:38 Procedure and supply charges have been captured, reviewed, submitted an d are correct. 13:00:20 Procedure Complication : No complications 13:00:25 Vital chart was stopped 13:00:27 [facility] Findings: MVD- PCI performed (see procedure note) 13:00:31 Operative report dictated upon procedure completion. 13:00:32 See physician's report for complete and final results. 13:00:33 Report given to Pre/Post Procedure Room. 13:00:39 Patient transfered to Pre/Post Procedure Room with Stretcher. 13:01:10 Procedure ended. 13:01:10 Full Disclosure recording stopped 13:01:34 ACT drawn and resulted at 153 seconds. (normal therapeutic range 180-24 0 seconds). 13:02:11 ACC-PCI Only Patient was given prescriptions, or instructed by Edinson Tee MD to start/continue the following medications upon discharge: Plavix 13:02:12 End room use (Document Last) 13:02:23 End room use (Document Last) 13:02:53 End room use (Document Last) Intervention Summary Intervention Notes Time ActionType Lesion and Equipment Used Action# Pressure Duration Attributes 12:55:49 Place stent Mid CX JALEN RX 2.5 x 1 14 00:00 18 stent ([id number]) 12:56:55 Reinflate Mid CX JALEN RX 2.5 x 2 14 00:00 stent 18 stent balloon ([id number]) Device Usage Item Name Manufacture Quantity Catalog Hospital Part [facility] Lot# / Number Charge Number Stock Stock Serial# Code GUIDE 6FR Cardinal 1 [id number] 736346 475683 10 XBLAD 3.5 Health catheter ([id number]) INFLATOR Merit Merit 1 [id number] 197742 146194 160646 15 BasixComcok Medical (HC8630) WHISPER 300cm Toribio 1 [id number] 228851 460901 225601 5 guide wire Vascular ([id number]) SHEATH 6FR Terumo 1 GSQ398 128786 406274 701082 40 Lavon (ZIH073) ACIST Syringe Acist 1 45604 461335 702008 961682 20 (39164) Medical Systems Inc Bag Decanter Microtek 1 369678 09336 127683 5 (2001S) Medical Inc. Medline Cath Medline 1 [id number] 292393 88307 431908 5 Pack ([id number]) ACIST Hand Acist 1 37403 372208 162396 927371 5 Control Medical (53549) Systems Inc ACIST Manifold Acist 1 70263 003481 654686 368290 5 (19052) Medical Systems Inc EMERALD Guide Cardinal 1 502-455 526706 148250 852776 5 Wire (502-447) Health JALEN RX 2.5 x Medtronic 1 [id number] 639137 3813247 585837 5 [id number] 18 stent ([id number]) EXOSEAL 6Fr Cardinal 1 EX600 178943 222179 231917 10 (EX600) Health Signature Audit [place] Stage Time Signature Unsigned Intra-Procedure 11/23/2019 Kim Alvarez 1:02:23 PM RT(R) Intra-Procedure 11/23/2019 Emeterio Sow RN 1:02:53 PM Intra-Procedure 11/23/2019 Edinson Rm 1:03:36 PM Justo REAVES [place] [id number] [place] [address]
--- NOTE | ~2019-11-23 | OP ---
PATIENT NAME: KATELYN EMERSON MEDICAL RECORD: [id number] :51 LOCATION:D.CAT ADMISSION DATE: SURGEON: KODY LUNSFORD MD DATE OF OPERATION: 11/23/2019 PROCEDURE: Intervention of the circumflex. DESCRIPTION OF PROCEDURE: After a 6-Serbian sheath was placed in the right femoral artery, an XB LAD guiding catheter provided excellent guide cath port. Mold Operator film showed an 80% stenosed circumflex, somewhat diffuse single diabetic vessel. Next, 300 cm Whisper wire was placed across the 80% stenosed circumflex. Stent deployed was a 2.5 x 18 mm Mcdonald drug-eluting stent up to 14 atmospheres for 45 after seconds. Final angiography shows excellent resolution of 80% stenosis, no residual. SOHEILA flow was 3 throughout the procedure. Heparin was used during the case. The patient was previously on Plavix. Sheath closed with ExoSeal device. TRANSINT:[id number] Voice Confirmation ID: [id number] DOCUMENT ID: [id number] KODY LUNSFORD MD CC: [id number] DICTATION DATE: 11/23/19 1303 PERPETUAL INVENTORY CLERK: 11/23/19 1342 DEP CLI 11/23/19 [place] [id number] [place] [id number]
[~2019-11-23 11:01] MED LIST changes: +HUMALOG 30100 UNITS/ SC; +LIPITOR20 MG PO; +PLAVIX75 MG PO
[2019-11-23] MEDS ORDERED: OXYBUTYNIN CHLOR5 MG PO (11:32)
[2019-11-23 11:34] VITALS: BP 146/48; Ht 172.7 cm; Wt 119.9 kg
[2019-11-23 12:29] LABS: CALC OSMOLALITY 285 mosm/kg (275-300); CALCIUM 9.1 mg/dL (8.5-10.1); CARBON DIOXIDE 25.4 mmol/L (21.0-32.0); CHLORIDE - SERUM 106 mmol/L (98-107); CREATININE - SERUM 0.9 mg/dL (0.6-1.3); GLUCOSE 176 mg/dL (74-106); SODIUM 140 mmol/L (136-145); UREA NITROGEN 22 mg/dL (7-18); eGFR NON AFRICAN AMERICAN 90 mL/min (90-120)
[2019-11-23 12:33] LABS: BASOPHILS 0.1 % (0-2); EOSINOPHILS 2.8 % (0-7); HEMATOCRIT 45.2 % (42.0-54.0); HEMOGLOBIN 14.6 g/dL (13.5-17.5); IMMATURE GRANULOCYTES 0.6 % (0-5); LYMPHOCYTES 29.7 % (15-50); MCHC 32.3 g/dL (31.0-37.0); MCV 86.6 fL (80.0-100.0); MEAN PLATELET VOLUME 9.9 fL (7.4-10.4); MONOCYTES 7.1 % (2-11); NEUTROPHILS 59.7 % (40-80); PLATELET COUNT 199 10x3/uL (130-400); RBC 5.22 10x6/uL (4.20-6.10); RDW 13.4 % (11.5-14.5); WBC 7.1 10x3/uL (4.8-10.8)
--- NOTE | 2019-11-23 13:13 | NUR ---
PT ARRIVED BY STRETCHER. PLACED ON MONITORS. ASSESSMENT COMPLETED. VSS AT THIS TIME. CALL LIGHT WITHIN REACH. FAMILY AT BEDSIDE. DR. KEMP ROUNDED AND SPOKE WITH PT'S AT BEDSIDE.
--- NOTE | 2019-11-23 13:28 | NUR ---
RIGHT GROIN DRESSING C/D/I. NO S/S OF HEMATOMA NOTED. CALL LIGHT WITHIN REACH. VSS AT THIS TIME. CALL LIGHT WITHIN REACH. FAMILY AT BEDSIDE. RIGHT PEDAL PULSE PALPABLE.
--- NOTE | 2019-11-23 14:00 | NUR ---
RIGHT GROIN DRESSING C/D/I. NO S/S OF HEMATOMA NOTED. CALL LIGHT WITHIN REACH. VSS AT THIS TIME. FAMILY AT BEDSIDE. NO NEEDS AT THIS TIME.
--- NOTE | 2019-11-23 14:30 | NUR ---
RIGHT GROIN DRESSING C/D/I. NO S/S OF HEMATOMA NOTED. CALL LIGHT WITHIN REACH. VSS AT THIS TIME. FAMILY AT BEDSIDE.
--- NOTE | 2019-11-23 15:00 | NUR ---
RIGHT GROIN DRESSING C/D/I. NO S/S OF HEMATOMA NOTED. CALL LIGHT WITHIN REACH. VSS AT THIS TIME. FAMILY AT BEDSIDE. RESTING COMFORTABLY.
--- NOTE | 2019-11-23 16:00 | NUR ---
RIGHT GROIN DRESSING C/D/I. NO S/S OF HEMATOMA. HEAD OF BED INC TO 30 DEGREES. TOLERATED WELL. VSS. FAMILY AT BEDSIDE. NO NEEDS AT THIS TIME.
--- NOTE | 2019-11-23 16:41 | NUR ---
RIGHT GROIN DRESSING C/D/I. NO S/S OF HEMATOMA NOTED. VSS. PIV D/C'D WITH CATH TIP INTACT. TOLERATED WELL. PT VOIDED IN URINAL APPROX 450cc OF CLEAR YELLOW URINE WITHOUT DIFFICULTY.
--- NOTE | 2019-11-23 16:50 | NUR ---
PT DRESSED. DISCUSSED DISCHARGE INSTRUCTIONS WITH PT AND PT'S . THEY VOICED UNDERSTANDING.
--- NOTE | 2019-11-23 17:00 | NUR ---
PT TAKEN DOWN TO VEHICLE BY WHEELCHAIR. NO S/S OF DISTRESS NOTED. ALL BELONGINGS AND PAPERWORK IN HAND.
--- NOTE | 2019-11-25 14:52 | HP ---
PATIENT: KATELYN EMERSON MEDICAL RECORD: [id number] ACCOUNT: [id number] LOCATION:[facility] : 51 ADMISSION DATE: 11/23/19 PCP: FOX COHEN DO HISTORY AND PHYSICAL EXAMINATION HISTORY OF PRESENT ILLNESS: A 64-year-old gentleman with known history of coronary artery disease, status post recent intervention after presenting with non-ST elevation myocardial infarction. Underwent revascularization of the right, being brought back for revascularization circumflex at this point. PAST MEDICAL HISTORY: Includes; 1. History of cerebrovascular disease status post CVA. 2. Hypertension. 3. Hyperlipidemia. 4. Coronary artery disease as described above. PHYSICAL EXAMINATION: GENERAL: Pleasant, no acute distress, appears stated age. HEENT: Normocephalic, atraumatic. NECK: No JVD or bruit. HEART: Regular. LUNGS: Vasques clear. EXTREMITIES: Pulses 2+. IMPRESSION: Coronary artery disease. PLAN: For intervention of the circ for complete revascularization of his coronary anatomy. TRANSINT:[id number] Voice Confirmation ID: [id number] DOCUMENT ID: [id number] KODY LUNSFORD MD at 1452 CC: [id number] DICTATION DATE: 11/23/19 1226 FIELD ARTILLERY OFFICER: 11/23/19 1244 DEP CLI 11/23/19 [place] [id number] [place] [address]
== END 2019-11-23 17:00 | disposition home or self-care (01) ==
LOC: D.CATH 11:01
PROVIDERS: ATTEND Internal Medicine Interventional Cardiology
DX: I25.10 Atherosclerotic heart disease of native coronary artery without angina pectoris (principal); I10 Essential (primary) hypertension; E78.5 Hyperlipidemia, unspecified; E11.9 Type 2 diabetes mellitus without complications; Z79.84 Long term (current) use of oral hypoglycemic drugs

== ENCOUNTER 2019-12-19 21:39 | Observation (INO) | payer MEDICARE, BC ==
[~2019-12-19] VITALS: Ht 172.7 cm; Wt 119.6 kg
--- NOTE | ~2019-12-19 | HEMODYNAMI ---
PATIENT:KATELYN EMERSON MEDICAL RECORD: [id number] : 51 LOCATION:[place] [address] ADMISSION DATE: 12/20/19 Generatedon:12/20/201912:21 Patient name: KATELYN EMERSON Patient #: [id number] SSN: [id number] : 1955 Date of study: 12/20/2019 Page: Of Hemodynamic Procedure Report Patient Data Patient Demographics Procedure consent was obtained First Name: KATELYN Gender: Male Last Name: IDANIA : 1955 Patient #: [id number] Age: 64 year(s) Race: SSN: [id number] Additional ID: [id number] Contact details Address: [address] [place] [address] State: [place] City: [facility] Zip code: [address] Past Medical History History of disease Date Diagnosis Comments CAD Allergies Allergen Reaction Date Comments Reported Other allergy 12/20/2019 CLAVULANIC ACID/AMOXICILLIN FROM AUGMENTIN Other allergy 11/23/2019 clavulanic acid, amoxicyllin Admission Admission Data Admission Date: 12/20/2019 Admission Time: 0:19 Room #: [facility] Height (in.): 68 BSA: 2.3 (m2) Height (cm.): 172.72 BMI: 40.14 (kg/m2) Weight (lbs.): 264 Weight (kg.): 119.75 Medications upon Admission Medications Dosage Times Administered Last Remarks per Delivery Day Date and Time DHRUV Inhibitor (any) Current Diagnosis Diagnosis Description NSTEMI Lab Results Lab Result Date: 12/20/2019 Lab Result Time: 0:00 Biochemistry Name Units Result Min Max Creatinine mg/dl 0.9 --(-*--)-- 0.6 1.3 eGFR ml/min 90 --(*---)-- 90 120 NONAFRICAN Troponin l ng/ml 0.075 --(----)-* 0 0.06 CBC Name Units Result Min Max Hematocrit % 44.2 --(*---)-- 42 54 Hemoglobin g/dl 14.4 --(*---)-- 13.5 17.5 Procedure Procedure Types Cath Procedure Diagnostic Procedure [facility] w/Coronaries Sedation Charges Moderate Sedation up to 15 minutes PCI Procedure Coronary Stent Coronary Stent Initial Hemochron ACT Test Procedure Description Procedure Date Procedure Date: 12/20/2019 Procedure Start Time: 11:52 Procedure End Time: 12:16 Procedure Staff Name Function Edinson Tee MD Performing Physician Aniyah Zaman RN Nurse Ana Day RT Scrub Didi Vasques RT Monitor Carol Hoffman RN Nurse Procedure Data Cath Procedure Fluoroscopy Diagnostic fluoroscopy Total fluoroscopy Time: 3.4 time: 3.4 min min Diagnostic fluoroscopy Total fluoroscopy dose: dose: 1298 mGy 1298 mGy Contrast Material Contrast Material Type Amount (ml) Isovue 300 112 Entry Location Entry Primary Successful Side Size Upsize Upsize Entry Closure Succes sful Closure Location (Fr) 1 (Fr) 2 (Fr) Remarks Device Remarks Femoral Right 5 Fr 6 Fr Exoseal artery Short Estimated blood loss: 10 ml Diagnostic catheters Device Type Used For End Catheter Placement MULTIPACK JL 4.0 5Fr Procedure catheter MULTIPACK 3DRC 5Fr Procedure catheter MULTIPACK Pigtail 5 Fr Procedure catheter Procedure Complications No complications Procedure Medications Medication Administration Route Dosage 0.9% NaCl I.V. 100 ml/hr Lidocaine 2% added to field 20 Heparin Flush Bag added to field 2 bags (1000units/500ml NS) Oxygen NC 2 l/min Fentanyl I.V. 50 mcg Versed I.V. 2 mg Fentanyl I.V. 50 mcg Versed I.V. 2 mg Heparin Bolus I.V. 5000 units Hemodynamics Rest BSA: 2.3 (m2) HGB: 14.4 (g/dl) O2 Consumption: Estimated: 257.5 (ml/min) O2 Cons umption indexed: Estimated:111.96 (ml/min/m) Heart Rate: 58 (bpm) Pressure Samples Time Site Value (mmHg) Purpose Heart Use Rate(bpm) 11:58 LV 124/10,19 Snapshot 61 Gradients Valve Time Site Site Mean SEP/DFP Peak To Heart Use 1 2 (mmHg) (sec/min) Peak Rate (mmHg) (bpm) Aortic 11:59 LV AO 63 Snapshots Pre Cath Intra NCS Post Cath Vital Signs Time Heart Resp SPO2 etCO2 NIBP Rhythm Pain Sedation Rate (ipm) (%) (mmHg) (mmHg) Status Level (bpm) 11:42:03 59 13 96 0 121/52(88) SB 0 (11) 10(A) , No pain 11:46:34 54 20 97 36.1 135/54(84) SB 0 (11) 10(A) , No pain 11:51:08 62 22 97 34.6 127/57(86) NSR 0 (11) 9(A) , No pain 11:55:36 58 12 97 43.6 105/43(61) SB 0 (11) 9(A) , No pain 11:59:58 67 12 98 16.5 121/60(91) NSR 0 (11) 9(A) , No pain 12:04:23 61 11 95 24 123/53(79) NSR 0 (11) 9(A) , No pain 12:08:49 60 11 95 27 117/59(81) NSR 0 (11) 9(A) , No pain 12:13:17 61 10 97 43.6 123/49(87) NSR 0 (11) 10(A) , No pain Medications Time Medication Route Dose Verified Delivered Reason Notes Effectiveness by by 11:47:13 0.9% NaCl I.V. 100 Edinson Aniyah used for ml/hr St Justo Zaman procedure MD MANN 11:47:23 Lidocaine 2% added 20ml Edinson Aniyah for local to vial St Justo Zaman anesthetic field MD MANN 11:47:35 Heparin Flush added 2 Edinson Aniyah used for Bag to bags St Justo Zaman procedure (1000units/500ml field REAVES RN NS) 11:47:44 Oxygen NC 2 Edinson Aniyah for low 02 sats l/min St Justo Zaman MD, RN 11:48:13 Fentanyl I.V. 50 Edinson Aniyah for sedation mcg St Justo Zaman MD, RN 11:48:19 Versed I.V. 2 mg Edinson Aniyah for sedation St Justo Zaman MD, RN 11:53:05 Versed I.V. 2 mg Edinson Aniyah for sedation St Justo Zaman MD, RN 11:53:08 Fentanyl I.V. 50 Edinson Anyiah for sedation mcg St Justo Zaman MD, RN 12::43 Heparin Bolus I.V. 5000 Edinson Medina for verifi ed units [facility] anticoagulation with Dr. REAVES RN [place] Procedure Log Time Note 11::05 Informed consent obtained and on chart 11:29:38 Patient allergic to Other allergyCLAVULANIC ACID/AMOXICILLIN FROM AUGMENTIN 11:29:49 Patient Height : 68 inches 11:29:55 Patient Weight : 264 lbs 11:30:26 Current Diagnosis : NSTEMI 11::54 Lab Result : Troponin l 0.075 ng/ml :54 Lab Result : Creatinine 0.9 mg/dl ::54 Lab Result : Hematocrit 44.2 % ::54 Lab Result : Hemoglobin 14.4 g/dl ::54 Lab Result : eGFR NONAFRICAN 90 ml/min 11::58 Diagnostic Cath Status : Urgent 11:32:01 ACC Patient presents with Non-STEMI CCS Anginal Class 2--Slight limitation of ordinary activity. 11:32:18 ACCPatient has been prescribed/administered the following anti-anginal medication within the last 2 weeks: DHRUV-Inhibitor 11:32:21 Procedure Status Urgent Heart Cath (IP). 11:32:27 Ana Day RT(R) sent for patient. Start room use. 11:32:28 Time tracking: Regular hours (M-F 7:00 - 5:00) 11:32:34 Plan of Care:Hemodynamics will remain stable., Cardiac rhythm will remain stable., Comfort level will be maintained., Respiratory function will remain adequate., Patient/ family verbilizes understanding of procedure., Procedure tolerated without complication., Recovers from procedure without complications.. 11:32:38 Patient received from Med II to CCL 1 Alert and oriented. Tansferred to table in Supine position. 11:32:43 Full Disclosure recording started 11:32:50 H&P Date Dictated: 12/20/2019 Within 30 days and on chart.. 11:32:59 Family unavailable. 11:33:01 Patient NPO since Midnight. 11:33:06 Is the patient allergic to Iodine/contrast media? No. 11:33:08 Was the patient premedicated? N/A 11:33:18 Patient diabetic? Yes. 11:33:20 If diabetic: On Metformin? No 11:34:16 Is patient on blood thinner?Yes 11:34:22 ACC The patient was administered the following blood thiners within the last 24 hours: ACCPlavix 11:34:30 Previous problem with sedation/anesthesia? No ? 11:34:34 Snore? Yes 11:34:35 Sleep apnea? No 11:34:40 Deviated septum? No 11:34:41 Opens mouth fully? Yes 11:34:42 Sticks out tongue? Yes 11:34:45 Airway obstruction? No ? 11:34:48 Dentures? No ? 11:40:40 Vital chart was started 11:43:46 Pre procedure: right dorsailis pedis pulse 1+ Palpable, but thready & weak; easily obliterated 11:43:50 Patient pain scale 0/10 ?. 11:44:03 IV patent on arrival in left forearm with 0.9% NaCl at KVO. 11:44:16 Lab results completed and on chart. 11:44:20 Stress Test: no; N/A ? 11:44:26 Right groin area was prepped with chlora-prep and draped in sterile fashion 11:44:27 Alarms reviewed by R. N. 11:44:27 Sharps counted by scrub and verified by R.N. 11:44:35 Warm blankets applied, and sommer hugger turned on for patient comfort. 11:44:35 Correct patient and procedure confirmed by team. 11:44:35 ECG and BP/O2 sat monitors applied to patient. 11:44:39 Baseline sample Acquired. 11:44:45 Rhythm: sinus bradycardia 11:44:50 Pre-procedure instructions explained to patient. 11:44:51 Pre-op teaching completed and patient verbalized understanding. 11:47:09 Risk of Mortality: 0.1 11:47:11 Risk of blood transfusion: 0.4 11:47:13 0.9% NaCl 100 ml/hr I.V. was administered by Aniyah Zaman RN; used for procedure; Verbal order read back and verified. 11:47:14 Risk of NGOC: 1.5 11:47:18 --------ALL STOP TIME OUT------ 11:47:18 Final Timeout: patient, procedure, and site verified with staff and physician. All members of the team are in agreement. 11:47:21 Right groin site verified by team. 11:47:23 Lidocaine 2% 20ml vial added to field was administered by Aniyah Zaman RN; for local anesthetic; Verbal order read back and verified. 11:47:23 Fire Safety Assessment: A--An alcohol-based skin anteseptic being used preoperatively., C--Open oxygen or nitrous oxide is being used., D--An ESU, laser, or fiber-optic light is being used. 11:47:28 Physical assessment completed. ASA score P 3 - A patient with severe systemic disease as per Edinson Tee MD. 11:47:31 1) 90+ Normal kidney functon but urine findings or structural abnormalities or genetic trait point to kidney disease. 11:47:34 Maximum allowable contrast dose (3.7 X eGFR X 0.75)250 ml. 11:47:35 Heparin Flush Bag (1000units/500ml NS) 2 bags added to field was administered by Aniyah Zaman RN; used for procedure; Verbal order read back and verified. 11:47:39 Sedation plan: IV Moderate Sedation Medication:Versed, Fentanyl 11:47:44 Oxygen 2 l/min NC was administered by Aniyah Zaman RN; for low 02 sats; Verbal order read back and verified. 11:47:46 Use device set Femoral Dx 11:47:47 ACIST Syringe (33442) opened to sterile field. 11:47:48 Bag Decanter (2002S) opened to sterile field. 11:47:48 Medline Cath Pack ([id number]) opened to sterile field. 11:47:50 ACIST Hand Control (31248) opened to sterile field. 11:47:51 ACIST Manifold (74110) opened to sterile field. 11:47:52 DIAGNOSTIC Multipack 5Fr catheter set (FL7110) opened to sterile field. 11:48:03 EMERALD Guide Wire (502-992) opened to sterile field. 11:48:04 SHEATH 5FR [place] (UMI398) opened to sterile field. 11:48:13 Fentanyl 50 mcg I.V. was administered by Aniyah Zaman RN; for sedation; Verbal order read back and verified. 11:48:19 Versed 2 mg I.V. was administered by Aniyah Zaman RN; for sedation; Verbal order read back and verified. 11:52:34 Procedure started. 11:52:40 Local anesthetic to right femoral artery with Lidocaine 2% by Edinson Tee MD.INITIAL ACCESS ONLY 11:53:05 Versed 2 mg I.V. was administered by Aniyah Zaman RN; for sedation; Verbal order read back and verified. 11:53:08 Fentanyl 50 mcg I.V. was administered by Aniyah Zaman RN; for sedation; Verbal order read back and verified. 11:54:33 A 5 Fr sheath was inserted into the Right Femoral artery 11:54:41 A MULTIPACK JL 4.0 5Fr catheter was advanced over the wire and used for Procedure. 11:55:50 LCA angiography performed. 11:55:51 Catheter removed. 11:55:58 A MULTIPACK 3DRC 5Fr catheter was advanced over the wire and used for Procedure. 11:56:49 RCA angiography performed. 11:56:50 Catheter removed. 11:58:02 A MULTIPACK Pigtail 5 Fr catheter was advanced over the wire and used for Procedure. 11:58:35 LV gram done using DICKSON 11:58:37 Injector settings: Ml/sec: 10, Volume: 20, 11:58:53 LV hemodynamics recorded. 11:59:08 EF : 50 % 11:59:10 Catheter removed. 11:59:34 Proceeding to intervention. 11:59:59 SHEATH 6FR [place] (UWD800) opened to sterile field. 11:59:59 WHISPER 300cm guide wire ([id number]) opened to sterile field. 11:59:59 INFLATOR Merit BasixCompak (KL5236) opened to sterile field. 12:00:01 GUIDE 6FR XBLAD 3.5 catheter ([id number]) opened to sterile field. 12:00:09 Pre PCI Site: [place] mLAD has 80% stenosis. 12:00:39 Sheath upsized to a 6 Fr Short. 12:00:52 6 Fr XBLAD 3.5 guide catheter was inserted over the wire 12:01:43 Heparin Bolus 5000 units I.V. was administered by Carol Hoffman RN; for anticoagulation; verified with Dr. Raza Verbal order read back and verified. 12:03:05 WHISPER 300 wire advanced. 12:03:15 Wire advanced across lesion. 12:05:24 The JALEN OTW 3.5 x 12 stent ([id number]) was advanced then removed because of failure to cross lesion 12:07:37 Place stent Inflation Number: 1 A JALEN RX 2.5 x 12 stent ([id number]) was prepped and advanced across the Mid LAD1 . The stent was deployed at 14 CLAUDE for 0:00 (min:sec) . 12:08:19 Inflation number: 2 The stent balloon was then re-inflated across the Mid LAD1 to 16 CLAUDE for 0:00 (min:sec) . 12:09:13 Stent catheter was removed intact over wire. 12:11:18 Place stent Inflation Number: 1 A JALEN OTW 2.5 x 18 stent ([id number]) was prepped and advanced across the Mid LAD . The stent was deployed at 14 CLAUDE for 0:00 (min:sec) . 12:11:59 Inflation number: 2 The stent balloon was then re-inflated across the Mid LAD to 14 CLAUDE for 0:00 (min:sec) . 12:12:17 Stent catheter was removed intact over wire. 12:12:19 Wire removed. 12:12:20 Guide catheter removed. 12:12:35 EXOSEAL 6Fr (EX600) opened to sterile field. 12:12:55 Fluoroscopy time 03.40 minutes. 12:12:59 Flurop Dose total: 1298 12:12:59 Fluoroscopy dose: 1298 mGy 12:13:05 Dose Area Product 11130 mGy/cm. 12:13:12 Contrast amount:Isovue 300 112ml. 12:13:16 Sheath removed intact; hemostasis achieved with Exoseal to the Right Femoral artery. 12:13:19 Procedure ended.(Physican Out) 12:13:40 Maximum allowable dose exceeded? No. 12:13:41 Sharps counted by scrub and verified by R.N. 12:13:44 Post-op/insertion site Right Femoral artery dressed using a 4 x 4 and Tegaderm. 12:13:48 ACT drawn and resulted at 281 seconds. (normal therapeutic range 180-240 seconds). 12:13:49 Post-procedure physical assessment completed. ASA score P 2 - A patient with mild systemic disease as per Edinson Tee MD. 12:13:52 Post procedure rhythm: sinus rhythm 12:13:54 Estimated blood loss: 10 ml 12:13:55 Post procedure instruction explained to patient.Patient verbalizes understanding. 12:13:56 Patient needs reinforcement of post procedure teaching. 12:14:22 Procedure type changed to Cath procedure, Diagnostic procedure, LHC, [facility] w/Coronaries, Sedation Charges, Moderate Sedation up to 15 minutes, PCI procedure, Coronary Stent, Coronary Stent Initial, Hemochron ACT Test 12:15:31 Procedure and supply charges have been captured, reviewed, submitted and are correct. 12:16:22 Procedure Complication : No complications 12:16:25 Vital chart was stopped 12:16:26 [facility] Findings: MVD- PCI performed (see procedure note) 12:16:27 Operative report dictated upon procedure completion. 12:16:28 See physician's report for complete and final results. 12:16:30 Report given to Med II. 12:16:32 Patient transfered to Med II with Bed. 12:16:34 Procedure ended. 12:16:34 Full Disclosure recording stopped 12:16:42 ACC-PCI Only Patient was given prescriptions, or instructed by Edinson Tee MD to start/continue the following medications upon discharge: Plavix 12:16:43 End room use (Document Last) 12:20:10 End room use (Document Last) 12:20:43 End room use (Document Last) Intervention Summary Intervention Notes Time ActionType Lesion and Equipment Used Action# Pressure Duration Attributes 12:05:24 Discard JALEN OTW 3.5 x Stent 12 stent ([id number]) 12:07:37 Place stent Mid LAD1 JALEN RX 2.5 x 1 14 00:00 12 stent ([id number]) 12:08:19 Reinflate Mid LAD1 JALEN RX 2.5 x 2 16 00:00 stent 12 stent balloon ([id number]) 12:11:18 Place stent Mid LAD JALEN OTW 2.5 x 1 14 00:00 18 stent ([id number]) 12:11:59 Reinflate Mid LAD JALEN OTW 2.5 x 2 14 00:00 stent 18 stent balloon ([id number]) Device Usage Item Name Manufacture Quantity Catalog Hospital Part Current [facility] Lot# / Number Charge Number Stock Stock Serial# Code ACIST Syringe Acist 1 93631 648172 281913 750208 20 (78977) Medical Systems Inc Bag Decanter Microtek 1 157462 91259 482543 5 (2001S) Medical Inc. Medline Cath Medline 1 [id number] 830099 58925 383064 5 Pack ([id number]) ACIST Hand Acist 1 86597 784101 857572 455564 5 Control Medical (95096) Systems Inc ACIST Manifold Acist 1 78611 191363 614588 030046 5 (94317) Medical Systems Inc DIAGNOSTIC Cardinal 1 ET7386 462743 40287 860687 30 Multipack 5Fr Health catheter set (HC2993) EMERALD Guide Cardinal 1 502-455 916601 189675 766597 5 Wire (502-455) Health SHEATH 5FR Terumo 1 BHP200 857897 648244 117965 5 [place] (BYB068) MULTIPACK JL Cardinal 1 056890 5 4.0 5Fr Health catheter MULTIPACK 3DRC Cardinal 1 499660 5 5Fr catheter Health MULTIPACK Cardinal 1 167029 5 Pigtail 5 Fr Health catheter SHEATH 6FR Terumo 1 OMQ760 251087 341745 822396 40 [place] (RQK003) WHISPER 300cm Toribio 1 [id number] 380569 362768 128273 5 guide wire Vascular (2088911UH) INFLATOR Merit Merit 1 SY5487 260066 126466 238673 15 [facility] (VO6092) GUIDE 6FR Cardinal 1 [id number] 787339 031046 947378 10 XBLAD 3.5 Health catheter ([id number]) JALEN OTW 3.5 x Medtronic 1 [id number] 647222 7891468 027634 5 [id number] 12 stent ([id number]) JALEN RX 2.5 x Medtronic 1 [id number] 895323 6916174 504307 5 [id number] 12 stent ([id number]) JALEN OTW 2.5 x Medtronic 1 [id number] 597756 31857 878464 5 [id number] 18 stent ([id number]) EXOSEAL 6Fr Cardinal 1 EX600 862442 578523 045712 10 (EX600) Health Signature Audit [place] Stage Time Signature Unsigned Intra-Procedure 12/20/2019 Didi Vasques 12:20:10 PM RT(R) Intra-Procedure 12/20/2019 Carol Hoffman 12:20:43 PM RN Intra-Procedure 12/20/2019 Edinson Rm 12:21:32 PM Justo REAVES [facility] [address] [place] [address]
[~2019-12-19 21:39] MED LIST changes: +OXYBUTYNIN CHLOR5 MG PO
[2019-12-19 22:09] LABS: BASOPHILS 0.3 % (0-2); EOSINOPHILS 2.5 % (0-7); HEMATOCRIT 44.2 % (42.0-54.0); HEMOGLOBIN 14.4 g/dL (13.5-17.5); IMMATURE GRANULOCYTES 0.4 % (0-5); LYMPHOCYTES 28.8 % (15-50); MCH 28.4 pg (26.0-34.0); MCHC 32.6 g/dL (31.0-37.0); MCV 87.2 fL (80.0-100.0); MONOCYTES 7.3 % (2-11); NEUTROPHILS 60.7 % (40-80); PLATELET COUNT 179 10x3/uL (130-400); RBC 5.07 10x6/uL (4.20-6.10); RDW 13.3 % (11.5-14.5); WBC 6.8 10x3/uL (4.8-10.8)
[2019-12-19 22:12] LABS: APTT 35.6 SECONDS (22.8-39.4); INR 1.03 (0.85-1.17); PROTIME 13.4 SECONDS (11.6-15.0)
[2019-12-19 22:13] LABS: CALC OSMOLALITY 284 mosm/kg (275-300); CALCIUM 8.6 mg/dL (8.5-10.1); CARBON DIOXIDE 28.2 mmol/L (21.0-32.0); CHLORIDE - SERUM 105 mmol/L (98-107); CREATININE - SERUM 0.9 mg/dL (0.6-1.3); GLUCOSE 129 mg/dL (74-106); POTASSIUM - SERUM 4.2 mmol/L (3.5-5.1); SODIUM 140 mmol/L (136-145); UREA NITROGEN 23 mg/dL (7-18); eGFR NON AFRICAN AMERICAN 90 mL/min (90-120)
[2019-12-19 22:34] LABS: ALBUMIN 3.9 g/dL (3.4-5.0); ALKALINE PHOSPHATASE 77 U/L (30-120); ALT (SGPT) 46 U/L (10-68); BILIRUBIN - TOTAL 0.44 mg/dL (0.2-1.3); CKMB 2.2 U/L (0.0-3.6); CREATINE KINASE 141 UL (21-232); MAGNESIUM - SERUM 2.2 mg/dL (1.8-2.4); PROTEIN - SERUM 7.1 g/dL (6.4-8.2)
[2019-12-19 22:36] LABS: TROPONIN-I 0.068 ng/mL (0.000-0.060)
[2019-12-19 23:52] VITALS: BP 123/64
[2019-12-20 01:01] VITALS: BP 145/70
[2019-12-20 01:46] VITALS: BP 117/49; Ht 172.7 cm; Wt 119.6 kg
--- NOTE | 2019-12-20 02:14 | NUR ---
MORPHINE 2MG SIVP GIVEN FOR C/O R ARM AND NECK PAIN. ADMISSION ASSESSMENT, HISTORY AND HOME MED LIST COMPLETED. IV TO LFA WITH NS AT 100CC/HR. IV PATENT. SB PER CM HR 56. ALERT AND ORIENTED TO PERSON, PLACE AND TIME. HATCH. LUNGS ESSENTIALLY CTA. 1+ EDEMA TO LOWER EXTREMITIES. EXPLAINED NPO MICHELLE CAMACHO BY CARDIOLOGY IN AM. PT STATED UNDERSTANDING. SR UP X1, CALL LIGHT WITHIN REACH.
--- NOTE | 2019-12-20 03:43 | NUR ---
PT AWAKE, DENIES ANY DISCOMFORT. CALL LIGHT WITHIN REACH.
[2019-12-20 04:18] LABS: CKMB 1.3 U/L (0.0-3.6); CREATINE KINASE 130 UL (21-232)
[2019-12-20 04:21] LABS: TROPONIN-I 0.075 ng/mL (0.000-0.060)
--- NOTE | 2019-12-20 06:30 | NUR ---
MORPHINE 2MG SIVP GIVEN FOR C/O R ARM, NECK AND SHOULDER PAIN. AM FSBS 153. NO COVERAGE PT NPO UNTIL SEEN BY CARDIOLOGY. NEEDS MET; WILL CONTINUE TO MONITOR.
[2019-12-20 07:06] VITALS: BP 99/39
[2019-12-20 09:39] LABS: ALBUMIN 3.5 g/dL (3.4-5.0); ALKALINE PHOSPHATASE 86 U/L (30-120); ALT (SGPT) 36 U/L (10-68); BILIRUBIN - TOTAL 0.26 mg/dL (0.2-1.3); CALC OSMOLALITY 283 mosm/kg (275-300); CALCIUM 8.4 mg/dL (8.5-10.1); CARBON DIOXIDE 29.3 mmol/L (21.0-32.0); CHLORIDE - SERUM 106 mmol/L (98-107); CHOLESTEROL, TOTAL 124 mg/dL (0-200); GLUCOSE 161 mg/dL (74-106); HDL CHOLESTEROL 31 mg/dL (32-96); LDL CHOLESTEROL 47 mg/dL (0-100); LDL-HDL RATIO 1.5 ratio (1.5-3.5); POTASSIUM - SERUM 4.4 mmol/L (3.5-5.1); PROTEIN - SERUM 6.9 g/dL (6.4-8.2); SODIUM 139 mmol/L (136-145); TRIGLYCERIDE 230 mg/dL (30-200); UREA NITROGEN 21 mg/dL (7-18); eGFR NON AFRICAN AMERICAN 79 mL/min (90-120)
[2019-12-20 10:04] LABS: CKMB 1.4 U/L (0.0-3.6); CREATINE KINASE 107 UL (21-232)
[2019-12-20 10:05] LABS: TROPONIN-I 0.077 ng/mL (0.000-0.060)
[2019-12-20 10:16] LABS: BASOPHILS 0.3 % (0-2); EOSINOPHILS 2.8 % (0-7); HEMATOCRIT 42.9 % (42.0-54.0); HEMOGLOBIN 14.2 g/dL (13.5-17.5); IMMATURE GRANULOCYTES 0.4 % (0-5); LYMPHOCYTES 26.9 % (15-50); MCH 28.7 pg (26.0-34.0); MCHC 33.1 g/dL (31.0-37.0); MCV 86.7 fL (80.0-100.0); MEAN PLATELET VOLUME 10.6 fL (7.4-10.4); MONOCYTES 7.5 % (2-11); NEUTROPHILS 62.1 % (40-80); PLATELET COUNT 158 10x3/uL (130-400); RBC 4.95 10x6/uL (4.20-6.10); RDW 13.4 % (11.5-14.5); WBC 7.7 10x3/uL (4.8-10.8)
[2019-12-20 10:22] VITALS: BP 119/57
--- NOTE | 2019-12-20 11:52 | NUR ---
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
--- NOTE | 2019-12-20 12:38 | NUR ---
RECEIVED PT BACK TO ROOM 2119. PT A/O X4, VITAL SIGNS STABLE, PLACED ON FREQUENT VITAL SIGNS. RT GROIN DRESSING CDI, NO S/S OF BLEEDING OR HEMATOMA. PT DENIES ANY NEEDS AT THIS TIME. CALL LIGHT IN REACH, NAD NOTED, WILL CONITNUE TO MONITOR.
--- NOTE | 2019-12-20 13:12 | NUR ---
SPOKE WITH PATIENT AND ABOUT CARDIAC REHAB, WILL CALL TOMORROW TO GET PATIENT SET UP FOR CARDIAC REHAB 12/27/2019 @ 1300.
--- NOTE | 2019-12-20 13:17 | NUR ---
NO CHANGES TO RT GROIN FROM PREVIOUS ASSESMENT. PT DENIES ANY NEEDS AT THIS TIME. CALL LIGHT IN REACH, NAD NOTED, WILL CONTINUE TO MONITOR.
--- NOTE | 2019-12-20 17:42 | NUR ---
PROVIDED VERBAL AND WRITTEN DISCHARGE TEACHING TO PT, WHO VERBALIZED UNDERSTANDING REGARDING TEACHING. D/C LT FA IV WITH CATHETER TIP INTACT. 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 PT WHEELED OUT TO ER ENTRANCE. NAD NOTED.
--- NOTE | 2019-12-21 13:36 | OP ---
PATIENT NAME: KATELYN EMERSON MEDICAL RECORD: [id number] :51 LOCATION:D.M2 D.0 ADMISSION DATE:12/20/19 SURGEON: KODY LUNSFORD MD DATE OF OPERATION: 12/20/2019 PROCEDURE: Left heart catheterization, selective coronary angiography, plus stent to the LAD times 2, right femoral artery approach. CATHETERS: A 5-Portuguese sheath, 5/4 left and right Nathan, 5/4 pig. The procedure was well tolerated. The patient returned to kelly. Sheath removed. ExoSeal device placed. FINDINGS: Left ventriculography in 30 degree DICKSON view normal wall motion and normal systolic function. CORONARY ANATOMY: LEFT MAIN: Left main is free of disease. LAD: Distal to the previously placed stent continued to have diffuse disease around 70% to 80%. Refractory to medication at this point. CIRCUMFLEX: Previously placed stent is widely patent with no evidence of restenosis and thrombosis. RIGHT CORONARY ARTERY: Dominant, gives rise to PDA, free of disease. PLAN: Intervention of the LAD momentarily. DESCRIPTION OF PROCEDURE: A 5-Portuguese sheath was exchanged for a 6-Portuguese sheath. An XB LAD guiding catheter provided excellent guiding catheter followed by 300 cm whisper wire was placed across both lesions this portion of the vessel. Stent deployed distally was a 2.5 x 12 approximately and 2.5 x 18; both up to 14 atmospheres. Final angiography shows excellent resolution up to distal 80% stenosis. No significant residual. SOHEILA flow was 3 throughout the procedure. Sheath was closed with ExoSeal device. The patient was on Plavix. Heparin was used during the case. TRANSINT:[id number] Voice Confirmation ID: [id number] DOCUMENT ID: [id number] KODY LUNSFORD MD at 1336 CC: [id number] DICTATION DATE: 12/20/19 1217 QUALITY ASSURANCE TECHNICIAN: 12/20/19 2201 DIS IN 12/20/19 [place] [id number] [place] [address]
--- NOTE | 2019-12-21 13:36 | CN ---
PATIENT NAME:KATELYN EMERSON MEDICAL RECORD: [id number] : 51 LOCATION:D. D.2120 ADMIT DATE: 12/20/19 ACCOUNT: [id number] CONSULTING PHYSICIAN: KODY LUNSFORD MD REFERRING PHYSICIAN: DINH CALHOUN MD DATE OF CONSULTATION: 12/20/2019 HISTORY OF PRESENT ILLNESS: A 64-year-old gentleman with a known history of coronary artery disease, status post intervention, admitted with arm and chest pain, onset yesterday, waxed and waned through the ER, initially had relief with nitroglycerin, however, subsequently requiring morphine. Cardiac enzymes subsequently found to be elevated. We are asked to see him concerning his cardiovascular status. PAST MEDICAL HISTORY: Includes: 1. History of hypertension. 2. Hyperlipidemia. 3. Diabetes mellitus. 4. Cerebrovascular disease status post CVA. 5. Coronary artery disease as described above. MEDICATIONS: Include Plavix 75 q. day, Altace 2.5 q. day, atorvastatin 20 q. day, Xanax 0.1 at bedtime p.r.n., aspirin 81 q. day, Dilaudid 4 mg p.o. q.6 p.r.n., Percocet 10/325 one p.o. q.6 p.r.n., Synthroid 75 mcg q. day, insulin per scale. SOCIAL HISTORY: Nonsmoker. Social drinker. He takes care of all his ADLs. Has been trying to exercise on a more regular basis. REVIEW OF SYSTEMS: The patient reports easy bruising but reports no swollen glands. The patient reports no fever, no night sweats, no significant weight gain, no significant weight loss. No significant exercise tolerance. The patient reports no dry eyes, no irritation, no vision change. Patient reports no difficulty hearing and no ear pain. Patient reports no frequent nose bleeds or nose and sinus problems. Patient reports no arm pain on exertion. No shortness of breath while lying down. No history of heart murmur. Patient reports no cough, no wheezing or coughing up blood. Patient reports no abdominal pain, no vomiting. Normal appetite. No diarrhea and not vomiting blood. No nausea and no constipation. Patient reports no incontinence. No difficulty urinating. No hematuria. No increased frequency. Patient reports no muscle aches. No weakness, no arthralgias, no back pain. No swelling of the extremities. Patient reports no abnormal mole, no jaundice, no rashes. Reports no loss of consciousness. No weakness and no numbness. No seizures, dizziness, or headaches. The patient reports no depression, no sleep disturbance, feeling safe in a relationship and no alcohol abuse. Patient reports no fatigue. Reports no runny nose or sinus pressure. No itching, no hives, and no frequent sneezing. ALLERGIES: AUGMENTIN. PHYSICAL EXAMINATION: GENERAL: No acute distress, appears stated age. VITAL SIGNS: 117/56, pulse 56 and regular. HEENT: Normocephalic, atraumatic. NECK: No JVD or bruit. CONSULT REPORT [id number] KATELYN EMERSON HEART: Regular. II/ systolic ejection murmur. CHEST: Good air excursion. ABDOMEN: Soft, nontender. EXTREMITIES: Pulse 2+. No edema. IMPRESSION: Acute coronary syndrome. No history of coronary artery disease. Elevated cardiac enzymes. PLAN: We will plan for angiography, intervention based on above. NTS:[id number] Voice Confirmation ID: [id number] DOCUMENT ID: [id number] KODY LUNSFORD MD at 1336 CC: [id number] DICTATION DATE: 12/20/19909 INTERIOR WIRER: 12/20/19 185 DIS IN 12/20/19 [facility] [address] [place] [address]
== END 2019-12-20 17:45 | disposition home or self-care (01) ==
LOC: D.ER 21:39 → D.M2 12-20 00:19 → OBSVTIME 12-20 00:19 → D.M2 12-20 17:45
PROVIDERS: Family Medicine; ADMIT Family Medicine; ATTEND Family Medicine
DX: I25.119 Atherosclerotic heart disease of native coronary artery with unspecified angina pectoris (principal); I10 Essential (primary) hypertension; E78.5 Hyperlipidemia, unspecified; E11.65 Type 2 diabetes mellitus with hyperglycemia; Z79.4 Long term (current) use of insulin; R07.9 Chest pain, unspecified; Z86.73 Personal history of transient ischemic attack (TIA), and cerebral infarction without residual deficits; E03.9 Hypothyroidism, unspecified
CPT/HCPCS: 93458; C9600